=== PATIENT | female | born 1975 | race Caucasian/White ===

== ENCOUNTER 2017-03-26 06:35 | Emergency (ER) | payer OTHER ==
[2017-03-26] MEDS ORDERED: Adacel Vial IM ONE ×2 (07:05→08:27)
[2017-03-26] MEDS ORDERED: TORAdol 30 mg Injection IM ONE (07:08)
--- NOTE | 2017-03-26 07:13 | ERPHSYRPT ---
- History of Present Illness Time Seen by Provider: 03/26/17 07:05 Source: patient Physician History: CC: fell Hx: 41 y/o patient with hx of BTL. She was at work last night. Went to her car to smoke. Fell asleep in the car. When she awoke she jumped up to run inside, left leg felt asleep. She fell down. Pain in the left hip area. Hurts to move the leg. No other injuries. Pain moderately severe with movement. Normal urination post injury. Occurred: this morning Loss of Consciousness: no loss of consciousness Severity of Pain-Max: moderate Severity of Pain-Current: moderate Allergies/Adverse Reactions: morphine Allergy (Verified 03/26/17 07:29) Sulfa (Sulfonamide Antibiotics) Allergy (Verified 03/26/17 07:29) - Review of Systems Constitutional: No Symptoms Eyes: No Vision Changes Respiratory: No Dyspnea Cardiac: No Chest Pain Abdominal/Gastrointestinal: No Abdominal Pain Musculoskeletal: Fall, Injury (left hip), No Back Pain, No Neck Pain All Other Systems: Reviewed and Negative - Past Medical History Pertinent Past Medical History: No - Past Surgical History Past Surgical History: Yes Female Surgical History: Tubal Ligation - Social History Smoking Status: Current every day smoker - Nursing Vital Signs Nursing Vital Signs: Initial Vital Signs Temperature 98 F 03/26/17 07:14 Pulse Rate 88 03/26/17 07:14 Respiratory Rate 16 03/26/17 07:14 Blood Pressure 107/64 03/26/17 07:14 O2 Sat by Pulse Oximetry 100 03/26/17 07:14 Pain Scale Pain Intensity 3 - Moneta Coma Score Best Eye Response (Moneta): (4) open spontaneously Best Verbal Response (Moneta): (5) oriented Best Motor Response (Moneta): (6) obeys commands Nathaly Total: 15 - Physical Exam Head Injury: no evidence of injury Eye Exam: PERRL/EOMI ENT Exam: airway nml Neck Exam: supple, normal alignment, No mid-line tenderness Respiratory/Chest Exam: normal breath sounds Cardiovascular Exam: regular rate/rhythm Gastrointestinal Exam: soft, No tenderness, No distention Extremity Exam: normal inspection, pelvis stable, tenderness (left hip area) Neurologic Exam: alert, oriented x 3, cooperative, sensation nml, No motor deficits Skin Exam: warm, dry, No rash - Course Nursing assessment & vital signs reviewed: Yes - Radiology Exams hip/pelvis X-ray Interpretation: Interpreted by me (fx junx of left inf/sup pubic ramus) - CT Exams abd/pelvis CT Interpretation: Tele-radiologist Report (comminuted left symphysis fx, pelvic congestion) Ordered Tests: Active Orders 24 hr Category Date Time Status Clean Catch Urine Specimen STAT Care 03/26/17 08:13 Active Crutches STAT Care 03/26/17 09:41 Active IV Insertion STAT Care 03/26/17 07:26 Active NPO (ED) STAT Care 03/26/17 07:26 Active ABDOMEN AND PELVIS W CONTRAST [CT] Stat Exams 03/26/17 07:32 Completed HIP UNI (2V) INCL PEL IF DONE Stat Exams 03/26/17 07:06 Completed CBC W DIFF Stat Lab 03/26/17 07:43 Completed CMP Stat Lab 03/26/17 07:43 Completed HCG QUALITATIVE,SERUM Stat Lab 03/26/17 07:43 Completed PROTIME WITH INR Stat Lab 03/26/17 07:43 Completed PTT Stat Lab 03/26/17 07:43 Completed UA W/RFX UR CULTURE Stat Lab 03/26/17 08:10 Completed Urine Triage Profile Stat Lab 03/26/17 07:30 Completed Medication Summary Generic Name Dose Route Start Last Admin Trade Name Freq PRN Reason Stop Dose Admin Sodium Chloride 1,000 mls @ 100 mls/hr 03/26/17 07:30 03/26/17 07:56 Sodium Chloride 0.9% 1000 Ml IV 04/25/17 07:29 100 mls/hr .Q10H ERICA Administration Discontinued Medications Generic Name Dose Route Start Last Admin Trade Name Freq PRN Reason Stop Dose Admin Diphtheria/Tetanus/Acell Pertussis 0.5 ml 03/26/17 07:05 03/26/17 08:28 Adacel Vial IM 03/26/17 07:06 0.5 ml .ONCE ONE Administration Diphtheria/Tetanus/Acell Pertussis Confirm 03/26/17 08:27 Adacel Vial Administered 03/26/17 08:28 Dose 0.5 ml IM .STK-MED ONE Hydromorphone HCl 1 mg 03/26/17 07:26 03/26/17 07:55 Hydromorphone 1 Mg/Ml Ampule IV 03/26/17 07:27 1 mg STAT ONE Administration Hydromorphone HCl Confirm 03/26/17 07:50 Hydromorphone 1 Mg/Ml Ampule Administered 03/26/17 07:51 Dose 1 mg .ROUTE .STK-MED ONE Ketorolac Tromethamine 60 mg 03/26/17 07:08 03/26/17 07:56 Toradol 30 Mg Injection IM 03/26/17 07:09 Not Given STAT ONE Ketorolac Tromethamine 30 mg 03/26/17 07:48 03/26/17 07:55 Toradol 30 Mg Injection IV 03/26/17 07:49 30 mg STAT ONE Administration Ketorolac Tromethamine Confirm 03/26/17 07:49 Toradol 30 Mg Injection Administered 03/26/17 07:50 Dose 30 mg .ROUTE .STK-MED ONE Ondansetron HCl 4 mg 03/26/17 07:52 03/26/17 07:54 Zofran 4 Mg/2 Ml Vial IV 03/26/17 07:53 4 mg STAT ONE Administration Ondansetron HCl Confirm 03/26/17 07:53 Zofran 4 Mg/2 Ml Vial Administered 03/26/17 07:54 Dose 4 mg .ROUTE .STK-MED ONE Lab/Rad Data: Laboratory Result Diagrams 03/26/17 07:43 03/26/17 07:43 Laboratory Results 03/26/17 03/26/17 03/26/17 Range/Units 08:10 07:43 07:43 WBC (4.0-10.5) K/mm3 RBC (4.1-5.4) M/mm3 Hgb (12.0-16.0) gm/dl Hct (35-47) % MCV (78-100) fl MCH (26-32) pg MCHC (32-36) g/dl RDW (11.5-14.0) % Plt Count (150-450) K/mm3 MPV (6-9.5) fl Gran % (36.0-66.0) % Lymphocytes % (24.0-44.0) % Monocytes % (0.0-12.0) % Eosinophils % (0.00-5.0) % Basophils % (0.0-0.4) % Basophils # (0-0.4) INR 0.94 (0.8-3.0) APTT 27.1 (25.3-37.0) SECONDS Sodium (136-145) mEq/L Potassium (3.5-5.1) mEq/L Chloride (98-107) mEq/L Carbon Dioxide (21-32) mEq/L Anion Gap (5-15) MEQ/L BUN (9-20) mg/dL Creatinine (0.55-1.30) mg/dl Estimated GFR ML/MIN Glucose (70-110) MG/DL Calcium (8.5-10.1) mg/dL Total Bilirubin (0.2-1.0) mg/dL AST (15-37) U/L ALT (12-78) U/L Alkaline Phosphatase (46-116) U/L Serum Total Protein (6.4-8.2) gm/dL Albumin (3.4-5.0) g/dL Serum , Qual NEGATIVE (Negative) Ur Collection Type CCMS Urine Color STRAW (YELLOW) Urine Appearance CLEAR (CLEAR) Urine pH 7.0 (5-6) Ur Specific [place] 1.005 (1.005-1.025) Urine Protein NEGATIVE (Negative) Urine Ketones NEGATIVE (NEGATIVE) Urine Blood NEGATIVE (0-5) Dillon/ul Urine Nitrite NEGATIVE (NEGATIVE) Urine Bilirubin NEGATIVE (NEGATIVE) Urine Urobilinogen NORMAL (0-1) mg/dL Ur Leukocyte Esterase NEGATIVE (NEGATIVE) Urine Glucose NEGATIVE (NEGATIVE) mg/dL Urine Opiates Level (NEGATIVE) Ur Methadone (NEGATIVE) Urine Barbiturates (NEGATIVE) Ur Phencyclidine (PCP) (NEGATIVE) Urine Amphetamine (NEGATIVE) U Benzodiazepine Level (NEGATIVE) Urine Cocaine (NEGATIVE) Urine Marijuana (THC) (NEGATIVE) Specimen Received 03/26 82503/26/17 03/26/17 03/26/17 Range/Units 07:43 07:43 07:30 WBC 8.3 (4.0-10.5) K/mm3 RBC 4.34 (4.1-5.4) M/mm3 Hgb 12.7 (12.0-16.0) gm/dl Hct 39.5 (35-47) % MCV 91.0 (78-100) fl MCH 29.3 (26-32) pg MCHC 32.2 (32-36) g/dl RDW 14.8 H (11.5-14.0) % Plt Count 180 (150-450) K/mm3 MPV 10.0 H (6-9.5) fl Gran % 80.2 H (36.0-66.0) % Lymphocytes % 11.3 L (24.0-44.0) % Monocytes % 6.6 (0.0-12.0) % Eosinophils % 1.7 (0.00-5.0) % Basophils % 0.2 (0.0-0.4) % Basophils # 0.02 (0-0.4) INR (0.8-3.0) APTT (25.3-37.0) SECONDS Sodium 140 (136-145) mEq/L Potassium 3.7 (3.5-5.1) mEq/L Chloride 105 (98-107) mEq/L Carbon Dioxide 25.1 (21-32) mEq/L Anion Gap 13.9 (5-15) MEQ/L BUN 6 L (9-20) mg/dL Creatinine 0.71 (0.55-1.30) mg/dl Estimated GFR > 60 ML/MIN Glucose 99 (70-110) MG/DL Calcium 9.2 (8.5-10.1) mg/dL Total Bilirubin 0.40 (0.2-1.0) mg/dL AST 47 H (15-37) U/L ALT 48 (12-78) U/L Alkaline Phosphatase 65 (46-116) U/L Serum Total Protein 8.1 (6.4-8.2) gm/dL Albumin 4.1 (3.4-5.0) g/dL Serum , Qual (Negative) Ur Collection Type Urine Color (YELLOW) Urine Appearance (CLEAR) Urine pH (5-6) Ur Specific [place] (1.005-1.025) Urine Protein (Negative) Urine Ketones (NEGATIVE) Urine Blood (0-5) Dillon/ul Urine Nitrite (NEGATIVE) Urine Bilirubin (NEGATIVE) Urine Urobilinogen (0-1) mg/dL Ur Leukocyte Esterase (NEGATIVE) Urine Glucose (NEGATIVE) mg/dL Urine Opiates Level NEG. (NEGATIVE) Ur Methadone NEG. (NEGATIVE) Urine Barbiturates NEG. (NEGATIVE) Ur Phencyclidine (PCP) NEG. (NEGATIVE) Urine Amphetamine NEG. (NEGATIVE) U Benzodiazepine Level NEG. (NEGATIVE) Urine Cocaine NEG. (NEGATIVE) Urine Marijuana (THC) POS. (NEGATIVE) Specimen Received - Progress Progress Note: 03/26/17 09:[address] Wharton out of town. Spoke to Dr Tyrone Gonzalez flight operation coordinator ortho at [place]. He reviewed films and advised crutches with partial weight bearing and follow up fx clinic in AM if able to go home. Pt prefers to go home. Will consult PT for crutch training and eval. 03/26/17 10:40 PT evaluated pt and she did well with crutches. Will release with instructions. Counseled pt/family regarding: lab results, diagnosis, need for follow-up, rad results, smoking cessation - Departure Time of Disposition: 10:41 Departure Disposition: Home Clinical Impression: Closed fracture of symphysis pubis Qualifiers: Laterality: left Fracture healing: with routine healing Condition: Stable Critical Care Time: No Referrals: TYRONE GONZALEZ MD [NON-STAFF PHY W/O PRIVILEGES] - Instructions: Use Crutches, Pelvic Fracture Additional Instructions: Use crutches and limited weight bearing. Go to [facility] at 8AM tomorrow AM. Rx norco. Return for problems or concerns. Off work and limited activity. Prescriptions: Hydrocodone Bit/Acetaminophen [[place] 5-325 Tablet] 1 each PO Q6H PRN PRN #24 tablet PRN Reason: Pain
[2017-03-26] MEDS ORDERED: Hydromorphone 1 mg/ml Ampule IV ONE (07:26)
[2017-03-26] MEDS ORDERED: Sodium Chloride 0.9% 1000 ML 1,000 ML IV SCH (07:30)
[2017-03-26] MEDS ORDERED: TORAdol 30 mg Injection IV ONE (07:48)
[2017-03-26] MEDS ORDERED: TORAdol 30 mg Injection ONE (07:49)
[2017-03-26] MEDS ORDERED: Sodium Chloride 0.9% 1000 ML 1,000 ML ONE (07:50)
[2017-03-26] MEDS ORDERED: Hydromorphone 1 mg/ml Ampule ONE (07:50)
[2017-03-26] MEDS ORDERED: Zofran 4 MG/2 ML VIAL IV ONE (07:52)
[2017-03-26] MEDS ORDERED: Zofran 4 MG/2 ML VIAL ONE (07:53)
[2017-03-26 07:56] LABS: BASOPHIL % 0.2 % (0.0-0.4); Eosinophil % 1.7 % (0.00-5.0); Granulocytes % 80.2 % (36.0-66.0); Lymphocytes % 11.3 % (24.0-44.0); Mean Corpuscular Hemoglobin 29.3 pg (26-32); Monocytes % 6.6 % (0.0-12.0); Platelet Count 180 K/mm3 (150-450); Red Blood Count 4.34 M/mm3 (4.1-5.4); Red Cell Distribution Width 14.8 % (11.5-14.0); White Blood Count 8.3 K/mm3 (4.0-10.5)
[2017-03-26 08:18] LABS: INR 0.94 (0.8-3.0); PROTIME 10.6 SECONDS (9.95-12.35)
[2017-03-26 08:21] LABS: PTT 27.1 SECONDS (25.3-37.0)
[2017-03-26 08:27] LABS: ALBUMIN 4.1 g/dL (3.4-5.0); ALKALINE PHOSPHATASE 65 U/L (46-116); ANION GAP 13.9 MEQ/L (5-15); BLOOD UREA NITROGEN 6 mg/dL (9-20); CHLORIDE 105 mEq/L (98-107); Carbon Dioxide 25.1 mEq/L (21-32); Glucose 99 MG/DL (70-110); Potassium 3.7 mEq/L (3.5-5.1); SGOT/AST 47 U/L (15-37); SGPT/ALT 48 U/L (12-78); SODIUM 140 mEq/L (136-145); Total Protein 8.1 gm/dL (6.4-8.2)
[2017-03-26 08:30] LABS: Bilirubin NEGATIVE (NEGATIVE); Blood NEGATIVE Ery/ul (0-5); Collection Type CCMS; Glucose NEGATIVE (NEGATIVE); Leukocyte Esterase NEGATIVE (NEGATIVE)
[2017-03-26 08:31] LABS: ADD URINE CULTURE? NO (NO); COMPLETE URINE MICROSCOPIC? NO
--- NOTE | 2017-03-26 08:59 | XRAY ---
Indication: Pelvic fracture. Multiple contiguous axial images obtained through the abdomen and pelvis using 80 cc Isovue 370 contrast only. Comparison: None Lung bases are essentially clear. Heart is not enlarged. Small hiatal hernia. There is nondisplaced slightly comminuted fracture involving the left pubic symphysis. No other bony or articular abnormalities. Noncontrasted stomach and bowel loops appear nonobstructed. There is mild diffuse scattered colonic fecal debris throughout. Normal appendix. 1.9 cm right ovary cyst. Previous cholecystectomy. No free fluid/air. Left uterine vein is distended up to 11 mm. There are also prominent left periuterine veins up to 9 mm. Remaining liver, pancreas, spleen, adrenal glands, kidneys, ureters, bladder, and uterus appear normal in CT appearance and attenuation. Minimal aortoiliac calcifications. No AAA or pathologic retroperitoneal lymphadenopathy. Impression: 1. Left pubic symphysis fracture as detailed. 2. The left uterine and periuterine veins are abnormally distended. Rule out pelvic congestion syndrome. 3. Incidental hiatal hernia and right ovary cyst. CT DI 12.52
--- NOTE | 2017-03-26 09:02 | XRAY ---
Indication: Pain following fall. Comparison: None AP pelvis and 2 views of the left hip demonstrates nondisplaced comminuted fracture involving the left pubic symphysis. No other bony, articular, or soft tissue abnormalities.
[2017-03-26 09:32] VITALS: BP 120/61; O2SAT 97
[2017-03-26 11:03] VITALS: PULSE 62
== END 2017-03-26 11:12 | disposition home or self-care (01) ==
LOC: ED 06:35
DX: S32.502A Unspecified fracture of left pubis, initial encounter for closed fracture (principal); W19.XXXA Unspecified fall, initial encounter
CPT/HCPCS: 36000; 36415; 73502; 74177; 80053; 80307; 81002; 84703; 85025; 85610; 85730; 90471; 90715; 96360; 96361; 96372; 96374; 96375; 99284; J1170; J1885; J2405

== ENCOUNTER 2021-04-29 09:46 | Emergency (ER) | payer OTHER ==
[2021-04-29] MEDS ORDERED: MOTRIN 600 MG PO ONE (09:57)
[2021-04-29] MEDS ORDERED: PERCOCET TABLET 5/325MG PO STA (09:57)
[2021-04-29] MEDS ORDERED: MOTRIN 600 MG ONE (09:59)
[2021-04-29] MEDS ORDERED: PERCOCET TABLET 5/325MG ONE (09:59)
--- NOTE | 2021-04-29 09:59 | ERPHSYRPT ---
- History of Present Illness Time Seen by Provider: 04/29/21 09:59 Source: patient Exam Limitations: no limitations Physician History: This is a 45-year-old white female who tripped and fell onto her right outstretched hand prior to arrival in the emergency department. She did not hit her head. She has no headache, she did not lose consciousness, she has no neck pain. She has right wrist pain. She presents emergency department with a deformity in her right wrist. Occurred: this morning Method of Injury: fell Quality: constant, aching Severity of Pain-Max: moderate Severity of Pain-Current: moderate Extremities Pain Location: wrist: right Associated Symptoms: none Allergies/Adverse Reactions: morphine Allergy (Verified 04/29/21 10:11) Penicillins Allergy (Verified 04/29/21 10:11) Sulfa (Sulfonamide Antibiotics) Allergy (Verified 04/29/21 10:11) Travel Risk - International Travel Have you traveled outside of the country in past 3 weeks: No - Coronavirus Screening Are you exhibiting any of the following symptoms?: No Close contact with a COVID-19 positive Pt in past 14-21 Days: No - Review of Systems Constitutional: No Symptoms Eyes: No Symptoms Ears, Nose, & Throat: No Symptoms Respiratory: No Symptoms Cardiac: No Symptoms Abdominal/Gastrointestinal: No Symptoms Genitourinary Symptoms: No Symptoms Musculoskeletal: Deformity (Right wrist), Fall, Injury (Right wrist) Skin: No Symptoms Neurological: No Symptoms Psychological: No Symptoms Endocrine: No Symptoms Hematologic/Lymphatic: No Symptoms Immunological/Allergic: No Symptoms All Other Systems: Reviewed and Negative - Past Medical History Pertinent Past Medical History: No - Past Surgical History Past Surgical History: Yes Gastrointestinal: Cholecystectomy, Other Female Surgical History: Tubal Ligation Other Surgical History: fundaplasty for stomach problems - Social History Smoking Status: Current every day smoker Exposure to second hand smoke: Yes Drug Use: none Patient Lives Alone: No - Female History Hx Now: No - Nursing Vital Signs Nursing Vital Signs: Initial Vital Signs Temperature 97.3 F 04/29/21 09:56 Pulse Rate 65 04/29/21 09:56 Respiratory Rate 20 04/29/21 09:56 Blood Pressure 116/69 04/29/21 09:56 O2 Sat by Pulse Oximetry 98 04/29/21 09:56 Pain Scale Pain Intensity 10 - Physical Exam General Appearance: mild distress, alert, anxiety Eyes, Ears, Nose, Throat Exam: normal ENT inspection, moist mucous membranes Neck Exam: normal inspection, non-tender, supple, full range of motion Cardiovascular/Respiratory Exam: chest non-tender, no respiratory distress Abdominal Exam: non-tender Back Exam: normal inspection, normal range of motion, No CVA tenderness, No vertebral tenderness Shoulder Exam: normal inspection, non-tender, no evidence of injury, normal ROM Elbow/Forearm Exam: normal inspection, non-tender, no evidence of injury, normal ROM Wrist Exam: bone tenderness, deformity, limited ROM, soft tissue tenderness, swelling (Patient is neurovascularly intact.) Hand Exam: normal inspection, non-tender, no evidence of injury, normal ROM Neuro/Tendon Exam: normal sensation, normal motor functions, normal tendon functions Mental Status Exam: alert, oriented x 3, cooperative Skin Exam: normal color, warm, dry SpO2 Interpretation: normal O2 Delivery: Room Air Procedures - Splinting Time of Procedure: 10:30 Location of Splint: Right, Wrist Type of Splint: Orthoglass Short Arm Splint Splint Applied By: ED Nurse Pre-Proc Neuro Vasc Exam: normal Post-Proc Neuro Vasc Exam: neurovascular intact Ordered Tests: Active Orders 24 hr Category Date Time Status Sling Application STAT Care 04/29/21 10:12 Ordered Splint STAT Care 04/29/21 10:11 Ordered WRIST (2 VIEW) Stat Exams 04/29/21 09:55 Ordered Medication Summary Discontinued Medications Generic Name Dose Route Start Last Admin Trade Name Avril PRN Reason Stop Dose Admin Ibuprofen 600 mg 04/29/21 09:57 04/29/21 10:00 Motrin 600 Mg PO 04/29/21 09:58 600 mg STAT ONE Administration Ibuprofen Confirm 04/29/21 09:59 Motrin 600 Mg Administered 04/29/21 10:00 Dose 600 mg .ROUTE .STK-MED ONE Oxycodone/Acetaminophen 1 tab 04/29/21 09:57 04/29/21 10:00 Percocet Tablet 5/325mg PO 04/29/21 09:58 1 tab STAT STA Administration Oxycodone/Acetaminophen Confirm 04/29/21 09:59 Percocet Tablet 5/325mg Administered 04/29/21 10:00 Dose 1 tab .ROUTE .STK-MED ONE - Progress Progress: improved Progress Note: 04/29/21 10:16 X-ray of right wrist shows dorsally displaced distal portion right radius fracture 04/29/21 10:23 Patient states that she has had [place] and Percocet in the past without any adverse reactions. Counseled pt/family regarding: diagnosis, need for follow-up, rad results - Departure Departure Disposition: Home Clinical Impression: Distal radius fracture, right Condition: Stable Critical Care Time: No Referrals: DOCTOR,NO FAMILY [Primary Care Provider] - Additional Instructions: Ice pack to area 3 times a day for the next 3 days. Add ibuprofen 600 mg orally with food 3 times a day for the next 5 days. Follow-up in [facility] orthopedic walk-in clinic on Sunday05/02/2021 at 8 AM. Prescriptions: Oxycodone HCl/Acetaminophen [Percocet 5-325 mg Tablet] 1 each PO Q8H PRN PRN #10 tablet MDD 3 PRN Reason: Pain
[2021-04-29 10:10] VITALS: BP 116/69; O2SAT 98
--- NOTE | 2021-04-29 10:24 | XRAY ---
Exam: Two-view right wrist series from 04/29/2021. Comparison: None. Indication: 45-year-old female fell; complains of right wrist pain. Findings: AP and crosstable lateral images of the right wrist were obtained. There is a significantly impacted, transverse, and mildly comminuted fracture of the distal right radius centered about 8-9 mm proximal to the articular surface of the distal right radius. There is a suggestion of slight posterior displacement on the lateral radiograph. More importantly, there is at least moderate posterior angulation of the major distal fractured radial element. I also note an avulsion fracture injury of the ulnar styloid process with minimal radial displacement on the AP image. The carpal scaphoid bone and remainder of the carpal bones appear intact. Impression: 1. Acute fractures of the distal right radius and ulnar styloid process, as discussed above.
[2021-04-29] MEDS ORDERED: Ativan 2 MG/1 ML VIAL ONE (10:39)
[2021-04-29] MEDS ORDERED: Ativan 2 MG/1 ML VIAL IM ONE (10:55)
[2021-04-29 11:16] VITALS: PULSE 102
== END 2021-04-29 11:28 | disposition home or self-care (01) ==
LOC: ED 09:46
DX: S52.501A Unspecified fracture of the lower end of right radius, initial encounter for closed fracture (principal); W19.XXXA Unspecified fall, initial encounter
CPT/HCPCS: 29126; 73100; 96372; 99284; J2060; A9270-GY

== ENCOUNTER 2022-02-04 05:40 | Emergency (ER) | payer OTHER ==
--- NOTE | 2022-02-04 05:45 | ERPHSYRPT ---
- History of Present Illness Time Seen by Provider: 02/04/22 05:44 Source: patient Exam Limitations: no limitations Physician History: This is a 46-year-old white female patient of Dr. Cornell who 5 days ago underwent a left carpal tunnel surgery and removal of a right upper extremity metal hardware procedure on the same day and presents with left ankle superficial redness and tenderness. There is also some warmth as well. Patient is a current daily smoker of cigarettes. Occurred: days ago (A few days ago) Quality: aching, burning Severity of Pain-Max: moderate Severity of Pain-Current: mild (To moderate) Lower Extremities Pain: ankle: left Modifying Factors: Improves With: movement Associated Symptoms: other (Hurts to bear weight) Allergies/Adverse Reactions: morphine Allergy (Verified 02/04/22 05:58) Penicillins Allergy (Verified 02/04/22 05:58) Sulfa (Sulfonamide Antibiotics) Allergy (Verified 02/04/22 05:58) Home Medications: Hydrocodone/Acetaminophen [Hydrocodone-Acetamin 5-325 mg] 1 tab PO Q6HPRN PRN MDD 4 02/04/22 [History] Hx Tetanus, Diphtheria Vaccination/Date Given: Yes Hx Influenza Vaccination/Date Given: Yes Hx Pneumococcal Vaccination/Date Given: No Travel Risk - International Travel Have you traveled outside of the country in past 3 weeks: No - Coronavirus Screening Are you exhibiting any of the following symptoms?: No Close contact with a COVID-19 positive Pt in past 14-21 Days: No - Vaccine Status Have you recieved a Covid-19 vaccination: No - Review of Systems Constitutional: No Symptoms Eyes: No Symptoms Ears, Nose, & Throat: No Symptoms Respiratory: No Symptoms Cardiac: No Symptoms Abdominal/Gastrointestinal: No Symptoms Genitourinary Symptoms: No Symptoms Musculoskeletal: No Symptoms Skin: Other (Redness warmth tenderness skin of left ankle) Neurological: No Symptoms Psychological: No Symptoms Endocrine: No Symptoms Hematologic/Lymphatic: No Symptoms Immunological/Allergic: No Symptoms All Other Systems: Reviewed and Negative - Past Medical History Pertinent Past Medical History: No - Past Surgical History Past Surgical History: Yes Gastrointestinal: Cholecystectomy, Other Female Surgical History: Tubal Ligation Other Surgical History: fundaplasty for stomach problems - Social History Smoking Status: Current every day smoker Exposure to second hand smoke: Yes Drug Use: none Patient Lives Alone: No - Nursing Vital Signs Nursing Vital Signs: Initial Vital Signs Temperature 97.3 F 02/04/22 06:00 Pulse Rate 82 02/04/22 06:00 Respiratory Rate 16 02/04/22 06:00 Blood Pressure 106/63 02/04/22 06:00 O2 Sat by Pulse Oximetry 100 02/04/22 06:00 Pain Scale Pain Intensity 5 - Physical Exam General Appearance: no apparent distress, alert, anxiety Eyes, Ears, Nose, Throat Exam: normal ENT inspection, moist mucous membranes Neck Exam: normal inspection, non-tender, supple, full range of motion Cardiovascular/Respiratory Exam: chest non-tender, no respiratory distress Gastrointestinal/Abdominal Exam: non-tender Back Exam: normal inspection, normal range of motion, No CVA tenderness, No vertebral tenderness Hips Exam: bilateral: non-tender, normal inspection, normal range of motion, no evidence of injury Legs Exam: bilateral leg: non-tender, normal inspection, normal range of motion, no evidence of injury Knees Exam: bilateral knee: non-tender, normal inspection, normal range of motion, no evidence of injury Ankle Exam: right ankle: non-tender, normal inspection, left ankle: soft tissue tenderness (With associated redness and warmth and a few patches around the left ankle), bilateral ankle: normal range of motion, no evidence of injury Foot Exam: bilateral foot: non-tender, normal inspection, normal range of motion, no evidence of injury Neuro/Tendon Exam: normal sensation, normal motor functions, normal tendon functions, responds to pain Mental Status Exam: alert, oriented x 3, cooperative Skin Exam: other (? Superficial thrombophlebitis and associated cellulitis left ankle) SpO2 Interpretation: normal O2 Delivery: Room Air Ordered Tests: Active Orders 24 hr Category Date Time Status D-DIMER QUANTITATIVE Stat Lab 02/04/22 06:27 Completed Lab/Rad Data: Laboratory Results 02/04/22 Range/Units 06:27 D-Dimer 0.46 (0.0-0.50) mg/L - Departure Departure Disposition: Home Clinical Impression: Cellulitis, Superficial thrombophlebitis Condition: Stable Critical Care Time: No Referrals: ANU CORNELL [Primary Care Provider] - Follow up/PCP as directed Additional Instructions: And ibuprofen 600 mg orally with food 3 times a day for the next 5 days. Take your antibiotics as prescribed. Follow-up with your primary care physician for further evaluation and management. Use heating pad to red area twice a day but not directly on the skin and put it on a medium setting. Prescriptions: Cephalexin Mh 500 mg [Keflex 500 mg] 500 mg PO TID #15 cap
[2022-02-04] MEDS ORDERED: KEFLEX 500 MG PO ONE (06:53)
[2022-02-04] MEDS ORDERED: KEFLEX 500 MG ONE (06:56)
[2022-02-04 07:00] VITALS: BP 105/73; PULSE 59; O2SAT 98
== END 2022-02-04 07:03 | disposition home or self-care (01) ==
LOC: ED 05:40
DX: L03.116 Cellulitis of left lower limb (principal); I80.02 Phlebitis and thrombophlebitis of superficial vessels of left lower extremity; M25.572 Pain in left ankle and joints of left foot; Z72.0 Tobacco use; Z79.891 Long term (current) use of opiate analgesic; Z28.310 Unvaccinated for COVID-19
CPT/HCPCS: 36415; 85379; 99282; A9270-GY